=== PATIENT | male | born 1980 | race Hispanic/Latino ===

== ENCOUNTER 2019-11-25 13:37 | Emergency (ER) | payer SELFPAY ==
[2019-11-25 14:51] LABS: Anion Gap 13 mmol/L (10-20); BUN (Urea Nitrogen) 11 mg/dL (8.9-20.6); Calc. Creatinine Clearance 0 mL/min (70-130); Calcium 8.8 mg/dL (7.8-10.44); Carbon Dioxide 24 mmol/L (22-29); Chloride 106 mmol/L (98-107); Estimated GFR-MDRD 84; Glucose 91 mg/dL (70-105); Potassium 4.4 mmol/L (3.5-5.1); Sodium 139 mmol/L (136-145)
[2019-11-25 14:53] LABS: ALT (SGPT) 53 U/L (8-55); AST (SGOT) 32 U/L (5-34); Albumin 4.1 g/dL (3.5-5.0); Alkaline Phosphatase 72 U/L (40-110); Bilirubin, Direct 0.2 mg/dL (0.1-0.3); Bilirubin, Total 0.4 mg/dL (0.2-1.2); Protein, Total 7.5 g/dL (6.0-8.3)
[2019-11-25] MEDS ORDERED: Ondansetron ODT 4 MG TAB ONE (14:55)
--- NOTE | 2019-12-03 16:54 | EKG ---
Test Reason : Blood Pressure : / mmHG Vent. Rate : 094 BPM Atrial Rate : 094 BPM P-R Int : 144 ms QRS Dur : 088 ms QT Int : 332 ms P-R-T Axes : 059 010 017 degrees QTc Int : 415 ms Normal sinus rhythm Normal ECG Confirmed by FER REYES, JUAN A ([id number]), commercial production editor ERICA MATOS ([id number]) on 12/03/2019 4:53:45 PM Referred By: Confirmed By:JUAN A MONROE MD
== END 2019-11-25 16:13 | disposition home or self-care (01) ==
LOC: ERS 13:37
DX: R00.2 Palpitations (principal); E86.0 Dehydration; F31.9 Bipolar disorder, unspecified; Z87.891 Personal history of nicotine dependence; Z79.82 Long term (current) use of aspirin
CPT/HCPCS: 36415; 80048; 80076; 93005; 96360; Q0162